=== PATIENT | male | born 1990 | race Caucasian/White ===

== ENCOUNTER → 2024-09-27 08:18 | Outpatient (REF) | payer OTHER, SELFPAY ==
[2024-09-29 10:26] LABS: Quantiferon Mitogen minus NIL 9.99 IU/mL; Quantiferon NIL 0.01 IU/mL; Quantiferon Plus TB1 minus NIL 0.01 IU/mL (<=0.34); Quantiferon Plus TB2 minus NIL 0.02 IU/mL (<=0.34); Quantiferon TB Gold Plus Negative (Negative)
== END ==
LOC: REG 08:18
PROVIDERS: ATTENDING PHYSICIAN Orthopaedic Surgery
DX: Z02.89 Encounter for other administrative examinations (principal)
CPT/HCPCS: 36415; 86480